=== PATIENT | female | born 1935 | race Caucasian/White ===

== ENCOUNTER → 2017-07-05 09:34 | Outpatient (CLI) | payer MEDICARE, OTHER ==
[2013-01-01 08:26] VITALS: BMI 24.7
== END | disposition home or self-care (01) ==
LOC: D.RT 09:34
DX: J45.909 Unspecified asthma, uncomplicated (principal)

== ENCOUNTER → 2018-08-15 09:32 | Outpatient (CLI) | payer MEDICARE ==
[2013-01-01 08:26] VITALS: BMI 24.7
== END | disposition home or self-care (01) ==
LOC: D.RT 09:32
DX: J45.909 Unspecified asthma, uncomplicated (principal); J98.11 Atelectasis

== ENCOUNTER → 2019-08-17 07:25 | Outpatient (CLI) | payer MEDICARE ==
[2013-01-01 08:26] VITALS: BMI 24.7
== END | disposition home or self-care (01) ==
LOC: D.RT 07:25
PROVIDERS: ATTEND Internal Medicine Pulmonary Disease
DX: J44.9 Chronic obstructive pulmonary disease, unspecified (principal)

== ENCOUNTER → 2019-09-02 07:40 | Outpatient (CLI) | payer MEDICARE ==
[2013-01-01 08:26] VITALS: BMI 24.7
== END | disposition home or self-care (01) ==
LOC: D.US 07:40
PROVIDERS: ATTEND Family Medicine
DX: K80.80 Other cholelithiasis without obstruction (principal)

== ENCOUNTER 2019-11-11 22:18 | Inpatient (IN) | payer MEDICARE, OTHER ==
[~2019-11-11] VITALS: Ht 157.5 cm; Wt 56.8 kg
[2019-11-11] MEDS ORDERED: FLUTICASONE PRO16 GM NASAL (22:31)
[2019-11-11] MEDS ORDERED: SYMBICORT 16010.2 GM INH (22:31)
[2019-11-11] MEDS ORDERED: CLARITIN 10 MG10 MG PO (22:31)
[2019-11-11] MEDS ORDERED: ALBUTEROL SULF8.5 GM (22:31)
[2019-11-11] MEDS ORDERED: SINGULAIR10 MG PO (22:31)
[2019-11-11] MEDS ORDERED: ASPIRIN81 MG PO (22:32)
[2019-11-11] MEDS ORDERED: PEPCID AC20 MG PO (22:32)
[2019-11-11] MEDS ORDERED: CALCIUM 250+D T1 TAB PO (22:32)
[2019-11-11] MEDS ORDERED: IPRAT-ALBUT 0.5-3 ML INH (22:32)
[2019-11-11] MEDS ORDERED: NEURONTIN 300300 MG PO (22:32)
[2019-11-11 23:03] LABS: BASOPHILS 0.1 % (0-2); EOSINOPHILS 0.3 % (0-7); HEMATOCRIT 47.3 % (36.0-48.0); HEMOGLOBIN 15.9 g/dL (12-16); IMMATURE GRANULOCYTES 0.3 % (0-5); LYMPHOCYTES 7.4 % (15-50); MCH 30.3 pg (26.0-34.0); MCHC 33.6 g/dL (31.0-37.0); MCV 90.1 fL (80.0-100.0); MONOCYTES 7.2 % (2-11); NEUTROPHILS 84.7 % (40-80); PLATELET COUNT 172 10x3/uL (130-400); RBC 5.25 10x6/uL (4.00-5.40); RDW 14.7 % (11.5-14.5); WBC 7.7 10x3/uL (4.8-10.8)
[2019-11-11 23:16] LABS: CALC OSMOLALITY 291 mosm/kg (275-300); CALCIUM 8.7 mg/dL (8.5-10.1); CARBON DIOXIDE 27.7 mmol/L (21.0-32.0); CHLORIDE - SERUM 105 mmol/L (98-107); CREATININE - SERUM 0.5 mg/dL (0.6-1.3); GLUCOSE 127 mg/dL (74-106); POTASSIUM - SERUM 3.7 mmol/L (3.5-5.1); SODIUM 144 mmol/L (136-145); UREA NITROGEN 20 mg/dL (7-18); eGFR NON AFRICAN AMERICAN > 90 mL/min (90-120)
[2019-11-11 23:36] LABS: ALBUMIN 3.9 g/dL (3.4-5.0); ALKALINE PHOSPHATASE 58 U/L (46-116); ALT (SGPT) 25 U/L (10-68); BILIRUBIN - TOTAL 0.58 mg/dL (0.2-1.3); CREATINE KINASE 63 UL (21-215); LIPASE 54 U/L (73-393); PRO BNP 428 pg/mL (0-450); PROTEIN - SERUM 7.1 g/dL (6.4-8.2); THYROID STIMULATING HORMONE 0.62 uIU/mL (0.36-3.74); TROPONIN-I < 0.017 ng/mL (0.000-0.060)
[2019-11-11 23:37] LABS: APPEARANCE HAZY (CLEAR); BILIRUBIN NEGATIVE (NEGATIVE); COLOR DK YELLOW (YELLOW); GLUCOSE NEGATIVE (NEGATIVE); KETONE MODERATE mg/dL (NEGATIVE); NITRITE POSITIVE (NEGATIVE); PROTEIN TRACE mg/dL (NEGATIVE); RED CELLS - URINE 0-5 /hpf (0-5); SPECIFIC GRAVITY 1.015 (1.005-1.020); UROBILINOGEN NORMAL (NORMAL)
[2019-11-11 23:38] LABS: BACTERIA MANY /hpf (NEGATIVE); EPITHELIAL CELLS OCC /hpf (0-5)
--- NOTE | 2019-11-12 00:01 | NUR ---
PT BEING TRANSPORTED TO CT AT THIS TIME VIA STRETCHER.
--- NOTE | 2019-11-12 00:55 | NUR ---
PT O2 SAT IS 90%. PT STATES "THAT IS FINE, I HAVE COPD". OFFERED PT OXYGEN, PT DECLINED.
[2019-11-12 02:04] VITALS: BP 149/71; BMI 22.9
[2019-11-12 08:43] VITALS: BP 111/61
--- NOTE | 2019-11-12 10:35 | NUR ---
PATIENT RECIEVED THIS AM FROM PREVIOUS NURSE, ADMITTED FOR UTI, ALSO NAUSEA AND VOMITING. PATIENT REPORTS NO NAUSEA SINCE ER, NPO FOR OR REFERAL FOR GALLSTONES. PATIENT DENIES PAIN OR NAUSEA AT THIS TIME. PATIENT IS ALERT AND ORIENTED. AMBULATES WITHOUT DIFFICULTY. BRACE TO RIGHT KNEE FROM PREVIOUS KNEE SURGERY. CL IN REACH
[2019-11-12 12:26] VITALS: BP 102/55
--- NOTE | 2019-11-12 12:42 | HP ---
PATIENT: MANAV MART MEDICAL RECORD: [id number] ACCOUNT: [id number] LOCATION:D.MS [id number] : 37 ADMISSION DATE: 11/11/19 PCP: WENDY DUKE MD HISTORY AND PHYSICAL EXAMINATION REASON FOR ADMISSION: Intractable vomiting and diarrhea. HISTORY OF PRESENT ILLNESS: The patient is an 84-year-old female with history of gallbladder sludge versus stones and had some intermittent postprandial dyspepsia for the last several months. She went to a [employer] and had some [place] meat and within 30 minutes developed onset of nausea, vomiting, intractable, and diarrhea. It lasted throughout the day. She came to the ED, was dehydrated with a BUN of 40. She also showed evidence of some pyuria and was admitted by the ED physician, placed on IV Bactrim. She states she has had some intermittent dyspepsia with fatty foods. PAST MEDICAL HISTORY: Asthma, COPD, degenerative arthritis of right knee, osteoarthritis of bilateral hips, history of methicillin-resistant Staphylococcus aureus positive culture in the past, colonic diverticular abscess in 09/2010 with IR drainage and lap-assisted sigmoidectomy, essential hypertension, GERD, remote UTI, remote fracture of the right humerus, closed, diverticulitis, history of basal cell carcinoma removed from her skin of her nose previously, PTSD, history of common variable Agammaglobulinemia, and rheumatoid arthritis. PAST SURGICAL HISTORY: Partial removal of colon lap-assisted, left sigmoid, cystourethroscopy, total knee arthroplasty, total hip arthroplasty with hardware removal, appendectomy, cardiac catheterization, hysterectomy, tonsillectomy, saphenous vein stripping of right lower extremity. She had a revision of her right hip arthroplasty on 10/17/[address] 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 FAMILY HISTORY: Parents , history of hypertension. SOCIAL HISTORY: Nonsmoker, rare alcohol drinker. She is times 2. HOME MEDICATIONS: Include diclofenac 50 mg b.i.d., gabapentin 300 mg one in the morning and two in the evening, famotidine 20 mg at bedtime, DuoNeb updrafts b.i.d., aspirin 81 mg a day, Voltaren topical gel t.i.d. to affected joint, Flonase nasal spray 1 spray each nostril daily, multivitamin 1 daily, calcium carbonate with vitamin D 500 mg daily, Symbicort 160 one puff b.i.d., montelukast 10 mg at bedtime, loratadine 10 mg p.o. daily p.r.n. allergies. REVIEW OF SYSTEMS: GENERAL: [place] well prior to onset of vomiting and diarrhea. Denies fever. HEENT: No recent visual change, sinus congestion, or sore throat. RESPIRATORY: Has intermittent cough and some wheezes, but much improved since being on updrafts and Singulair. No recent sputum production. GASTROINTESTINAL: Nausea with intractable vomiting. No hematemesis or melena. She had loose stool, well it has now improved. ENDOCRINE: Denies polyuria, polydipsia, heat or cold intolerance. NEUROLOGIC: No history of stroke, TIA, or vascular headaches. PSYCHIATRIC: Admits to intermittent anxiety, but no recent depressed mood. MUSCULOSKELETAL: Chronic pain in her lumbar spine, both hips. HISTORY AND PHYSICAL [id number] MANAV MART PHYSICAL EXAMINATION: GENERAL: Alert 84-year-old female, at this time feels mildly ill due to nausea. VITAL SIGNS: Temperature 99.1 Fahrenheit orally, pulse 97, respirations 18, blood pressure 149/71 with a sat of 94% on room air. HEENT: Eyes are clear. Oropharynx shows dry mucous membranes. Sclerae nonicteric. NECK: Supple. CHEST: Distant breath sounds without wheeze or rales. HEART: Regular rate and rhythm. ABDOMEN: Soft, minimally tender in right upper quadrant. Bowel sounds are active. RECTAL: Deferred. EXTREMITIES: No gross edema. Postoperative changes in the right hip and these are noted. LABORATORY DATA: Electrolytes are normal with BUN elevated at 20, with BUN and creatinine ratio of 40, glucose of 127, lipase of 54. White count of 7700, H&H of 15.9 and 47.3, left shift noted. Urinalysis; nitrite positive, 1+ leukocyte esterase, 0-5 red cells, 5-10 white cells with many bacteria. Creatinine 0.5 with potassium 3.7. Previous gallbladder ultrasound from August of this year shows either non-shadowing gallstones or biliary sludge in the dependent portion of the gallbladder. ASSESSMENT: 1. Intractable vomiting and diarrhea. 2. Cholelithiasis. 3. Urinary tract infection. PLAN: The patient is admitted for IV fluids. We will hold n.p.o., place on IV antibiotics. She has been placed on Bactrim IV due to allergies. I will not change at this time unless the patient has adverse results or culture indicates better therapy. We will hold n.p.o. for a PIPIDA scan. TRANSINT:[id number] Voice Confirmation ID: [id number] DOCUMENT ID: [id number] WENDY DUKE MD at 1242 CC: [id number] DICTATION DATE: 11/12/19 0753 EGG GRADER: 11/12/19 1007 ADM IN [facility] [address] [place] [address]
[2019-11-12 16:40] VITALS: BP 110/63
[2019-11-12 17:36] VITALS: Ht 157.5 cm; Wt 56.8 kg
--- NOTE | 2019-11-12 19:45 | NUR ---
PT SITTING UP IN BED WITHOUT DISTRESS, AOX4. IV RIGHT FA INFUSING NS @ 125. O2 2L/NC. SLIGHTLY SOB WITH AMBULATION. KNEE BRACE TO RIGHT KNEE. DENIES NAUSEA OR PAIN. NO NEEDS AT THIS TIME. CL IN REACH, WILL CTM
[2019-11-12 20:00] VITALS: BP 120/53
--- NOTE | 2019-11-12 21:00 | NUR ---
HIBI CLENSE SHOWER TAKEN AT THIS TIME. DENIES OTHER NEEDS. WILL CTM
--- NOTE | 2019-11-12 22:00 | NUR ---
REMINDED PT SHE IS NPO AFTER MN, VERBALIZED UNDERSTANDING. CL IN REACH, WILL CTM
[2019-11-13] VITALS (13 sets, daily range): BP systolic 105–138; BP diastolic 53–71
[2019-11-13 06:31] LABS: HEMOGLOBIN 13.4 g/dL (12-16); MCHC 32.7 g/dL (31.0-37.0); MCV 91.7 fL (80.0-100.0); MEAN PLATELET VOLUME 11.7 fL (7.4-10.4); PLATELET COUNT 203 10x3/uL (130-400); RBC 4.47 10x6/uL (4.00-5.40); RDW 14.7 % (11.5-14.5)
[2019-11-13 06:33] LABS: WBC 4.8 10x3/uL (4.8-10.8)
[2019-11-13 06:47] LABS: ALKALINE PHOSPHATASE 44 U/L (46-116); ALT (SGPT) 20 U/L (10-68); AMYLASE - SERUM 30 U/L (25-115); BILIRUBIN - DIRECT 0.08 mg/dL (0.00-0.30); BILIRUBIN - INDIRECT 0.13 mg/dL (0.00-1.00); BILIRUBIN - TOTAL 0.21 mg/dL (0.2-1.3); CALCIUM 7.7 mg/dL (8.5-10.1); CARBON DIOXIDE 25.6 mmol/L (21.0-32.0); CHLORIDE - SERUM 109 mmol/L (98-107); CREATININE - SERUM 0.5 mg/dL (0.6-1.3); GLUCOSE 86 mg/dL (74-106); PROTEIN - SERUM 5.7 g/dL (6.4-8.2); SODIUM 143 mmol/L (136-145); eGFR NON AFRICAN AMERICAN > 90 mL/min (90-120)
[2019-11-13 06:49] LABS: CALC OSMOLALITY 282 mosm/kg (275-300); LIPASE 75 U/L (73-393); UREA NITROGEN 9 mg/dL (7-18)
[2019-11-13] MEDS ORDERED: DILAUDID2 MG PO (09:07)
[2019-11-13 09:14] LABS: ANISOCYTOSIS OCC; EOSINOPHILS 2 % (0-7); LYMPHOCYTES 35 % (15-50); MONOCYTES 12 % (2-11); NEUTROPHILS 50 % (40-80); PLATELET ESTIMATE NORMAL
[2019-11-13 09:15] LABS: ROULEAUX OCC
--- NOTE | 2019-11-13 09:38 | NUR ---
0916 RECEIVED PATIENT WITH OPA INTACT
--- NOTE | 2019-11-13 09:54 | MORECARE ---
CASE MANAGEMENT DISCHARGE SUMMARY PATIENT: MANAV MART UNIT: [id number] ADM DATE: 11/12/19 AGE: 84 : 36 SEX: F ROOM/BED: D.2207 AUTHOR: JOY MIKE PHYSICIAN: REFERRING PHYSICIAN: WENDY DUKE MD DATE OF SERVICE: 11/13/19 Discharge Plan Patient Name: MANAV MART Facility: [facility]:[place] : 1935 Planned Disposition: Home Anticipated Discharge Date: Discharge Date: Expected LOS: Initial Reviewer: [email or web address] Initial Review Date: 11/12/2019 Generated: 11/13/19 10:53 am Comments DCP- Discharge Planning Updated by [email or web address]: Maggy You on 11/13/19 8:[address] attempted to see patient, they were not in room . patient in procedure Patient Name: MANAV MART Page [phone] at 0954 All edits/amendments must be made on the electronic document DICTATION DATE: 11/13/19952 COMMAND POST SUPERINTENDENT: FUAD 11/13/19952 RPT#: [id number] DC DATE: STATUS: ADM IN [facility] [address] [place] [address] END OF REPORT
--- NOTE | 2019-11-13 10:48 | NUR ---
RETURNED PT RINGS, GIVEN LOTION TO PT TO HELP GET RINGS OVER KNUCKLES. FRIEND AT BEDSIDE. PT REPORTING SLIGHT NAUSEA. NO OTHER NEEDS AT THIS TIME.
--- NOTE | 2019-11-13 19:30 | NUR ---
SUPINE IN BE, A&O X 4, DENIES PAIN/DISCOMJFORT. LAP SITES C/D/I. REPORTS NO WEAKNESS WHILE AMBULATING, BUT STATES SHE UTILIZES A KNEE BRACE ON HER RIGHT LEG DUE TO OCCASIONAL WEAKNESSW FROM NERVE DAMAGE. PERFORMED ORAL CARE INDEPENDENTLY, NO FURTHER NEEDS VOICED, WILL CONTINUE TO MONITOR.
[2019-11-14] VITALS: BP 115/68
--- NOTE | 2019-11-14 01:58 | NUR ---
I have reviewed this patient and I concur with the Shift Assessment completed by the Licensed Practical Nurse today this shift.
[2019-11-14 04:00] VITALS: BP 98/53
[2019-11-14 06:28] LABS: BASOPHILS 0.4 % (0-2); EOSINOPHILS 0.2 % (0-7); HEMATOCRIT 39.6 % (36.0-48.0); HEMOGLOBIN 13.1 g/dL (12-16); IMMATURE GRANULOCYTES 0.2 % (0-5); MCHC 33.1 g/dL (31.0-37.0); MCV 90.8 fL (80.0-100.0); MEAN PLATELET VOLUME 11.2 fL (7.4-10.4); MONOCYTES 16.6 % (2-11); NEUTROPHILS 66.6 % (40-80); PLATELET COUNT 197 10x3/uL (130-400); RBC 4.36 10x6/uL (4.00-5.40); RDW 14.5 % (11.5-14.5)
[2019-11-14 06:47] LABS: WBC 8.4 10x3/uL (4.8-10.8)
[2019-11-14 07:15] LABS: CALC OSMOLALITY 281 mosm/kg (275-300); CALCIUM 7.8 mg/dL (8.5-10.1); CARBON DIOXIDE 26.8 mmol/L (21.0-32.0); CHLORIDE - SERUM 108 mmol/L (98-107); CREATININE - SERUM 0.5 mg/dL (0.6-1.3); GLUCOSE 99 mg/dL (74-106); POTASSIUM - SERUM 3.1 mmol/L (3.5-5.1); SODIUM 142 mmol/L (136-145); UREA NITROGEN 10 mg/dL (7-18); eGFR NON AFRICAN AMERICAN > 90 mL/min (90-120)
[2019-11-14 09:01] VITALS: BP 110/52
[2019-11-14] MEDS ORDERED: LEVOFLOXACIN500 MG PO (09:44)
[2019-11-14] MEDS ORDERED: KLOR-CON 1010 MEQ PO (09:46)
--- NOTE | 2019-11-14 10:41 | NUR ---
UNABLE TO LOCATE [facility]. SPOKE WITH PT. SHE HAD A WRITTEN RX FROM DR CHI AND DID NOT WANT THE RX. SHE STATES SHE GAVE IT TO DR DUKE AND HE SHREDDED.
--- NOTE | 2019-11-14 10:53 | NUR ---
CM MET WITH THE PATIENT TO DISCUSS DISCHARGE PLANNING NEEDS. CM INTRODUCED SELF AND EXPLAINED MY ROLE. PATIENT CONSENTED TO INTERVIEW. PATIENT LIVES ALONE. SHE HAS A GOOD FRIEND WHO WILL BE ASSISTING HER POST DISCHARGE. SHE DOES NOT FEEL SHE HAS ANY NEEDS. SHE HAS HAD HOME HEALTH SERVICES IN THE PAST. SHE DENIES NEED. HER HOME IS HANDICAP EQUIPPED. SHE HAS ONE STEP WITH RAIL TO ENTER HER HOME. SHE WILL HAVE TRANSPORTATION TO HOME. PCP- DR DUKE [facility]- [facility] ONE CM DISCUSSED DISCHARGE IMM THE PATIENT IS FAMILIAR AND HAD NO QUESTIONS OR CONCERNS. IMM SERVED. SIGNATURES OBTAINED ON 2 ORIGINAL COPIES. ONE TO THE PATIENT AND ONE TO THE HARD COVER CHART. SHE IS ANXIOUS TO GO HOME.
--- NOTE | 2019-11-14 11:03 | NUR ---
DISCHARGE IMM SERVED 11/14/19 AT 1031.
--- NOTE | 2019-11-14 11:40 | NUR ---
DISCHARGE PAPERWORK SIGNED, ALL QUESTIONS ANSWERED. ESCORTED OUT BY WHEELCHAIR.
--- NOTE | 2019-11-17 07:29 | MORECARE ---
CASE MANAGEMENT DISCHARGE SUMMARY PATIENT: MANAV MART UNIT: [id number] ADM DATE: 11/12/19 AGE: 84 : 36 SEX: F ROOM/BED: D.2207 AUTHOR: JOY MIKE PHYSICIAN: REFERRING PHYSICIAN: WENDY DUKE MD DATE OF SERVICE: 11/17/19 Discharge Plan Patient Name: MANAV MART [facility] [facility] 1935 Planned Disposition: Home Anticipated Discharge Date: Discharge Date: 11/14/2019 Expected LOS: Initial Reviewer: [email or web address] Initial Review Date: 11/12/2019 Generated: 11/17/19 8:28 am Comments DCP- Discharge Planning Updated by [email or web address]: Maggy You on 11/13/19 8:[address] attempted to see patient, they were not in room . patient in procedure Last DP export: 11/13/19 8:54 Patient Name: MANAV MART Page [id number] at 0729 All edits/amendments must be made on the electronic document DICTATION DATE: 11/17/19727 SUPERVISOR WET ROOM: FUAD 11/17/19727 RPT#: [id number] DC DATE:11/14/19 STATUS: DIS IN [facility] [address] [place] [address] END OF REPORT
== END 2019-11-14 12:10 | disposition home or self-care (01) | DRG 418 ==
LOC: D.ER 22:18 → D.MS 23:52 → OBSVTIME 23:52 → D.MS 11-12 17:17
PROVIDERS: Family Medicine; Surgery; ADMIT Family Medicine; ATTEND Family Medicine
PROC: 0FT44ZZ Resection of Gallbladder, Percutaneous Endoscopic Approach (ICD-10-PCS; principal; 2019-11-13 08:00)
DX: K80.20 Calculus of gallbladder without cholecystitis without obstruction (principal); N39.0 Urinary tract infection, site not specified; E87.6 Hypokalemia; B96.1 Klebsiella pneumoniae [K. pneumoniae] as the cause of diseases classified elsewhere; J45.909 Unspecified asthma, uncomplicated; M19.90 Unspecified osteoarthritis, unspecified site

== ENCOUNTER → 2019-12-10 14:24 | Outpatient (CLI) | payer MEDICARE ==
[2019-11-12 17:36] VITALS: BMI 22.9
[~2019-12-10 14:24] MED LIST: ALBUTEROL SULF8.5 GM; ASPIRIN81 MG PO; CALCIUM 250+D T1 TAB PO; CLARITIN 10 MG10 MG PO; DILAUDID2 MG PO; FLUTICASONE PRO16 GM NASAL; IPRAT-ALBUT 0.5-3 ML INH; KLOR-CON 1010 MEQ PO; LEVOFLOXACIN500 MG PO; NEURONTIN 300300 MG PO; PEPCID AC20 MG PO; SINGULAIR10 MG PO; SYMBICORT 16010.2 GM INH
== END | disposition home or self-care (01) ==
LOC: D.LABREF 14:24
PROVIDERS: ATTEND Surgery
DX: C44.92 Squamous cell carcinoma of skin, unspecified (principal)

== ENCOUNTER → 2020-08-12 15:12 | Outpatient (CLI) | payer MEDICARE, OTHER ==
[2019-11-12 17:36] VITALS: BMI 22.9
== END | disposition home or self-care (01) ==
LOC: D.LAB 15:12
PROVIDERS: ATTEND Internal Medicine Pulmonary Disease
DX: Z11.59 Encounter for screening for other viral diseases (principal)

== ENCOUNTER → 2020-08-24 07:50 | Outpatient (CLI) | payer MEDICARE, OTHER ==
[2019-11-12 17:36] VITALS: BMI 22.9
== END | disposition home or self-care (01) ==
LOC: D.RAD 07:50
PROVIDERS: ATTEND Internal Medicine Pulmonary Disease
DX: J98.11 Atelectasis (principal)